=== PATIENT | male | born 1945 ===

== ENCOUNTER 2019-07-14 08:48 | Outpatient (CLI) | payer OTHER | END 2019-07-14 08:52 | disposition home or self-care (01) | LOC: SONOGRAMA 08:48 | DX: R10.84 Generalized abdominal pain (principal); N20.0 Calculus of kidney ==

== ENCOUNTER 2020-02-11 09:34 | Outpatient (CLI) | payer OTHER | END 2020-02-11 09:42 | disposition home or self-care (01) | LOC: SONOGRAMA 09:34 → MAMO-SONO 09:45 | PROVIDERS: ATTEND General Practice | DX: R10.84 Generalized abdominal pain (principal) ==

== ENCOUNTER 2023-08-14 09:16 | Outpatient (CLI) | payer OTHER | END 2023-08-14 09:22 | disposition home or self-care (01) | LOC: SONOGRAMA 09:16 | PROVIDERS: ATTEND General Practice | DX: M65.242 Calcific tendinitis, left hand (principal) ==